=== PATIENT | male | born 1960 | race Two or more races ===

== ENCOUNTER 2024-01-18 16:33 | Emergency (ER) | payer OTHER ==
[~2024-01-18] VITALS: Ht 182.9 cm; Wt 122.7 kg
[2024-01-18 18:26] VITALS: BP 126/77; PULSE 77; RESP 20; TEMP 98.1; O2SAT 97
[2024-01-18] MEDS ORDERED: CEPH500C PO (20:11)
[2024-01-18] MEDS ORDERED: ACET500T58 PO (20:11)
== END 2024-01-18 20:20 | disposition home or self-care (01) ==
LOC: EDBD 16:33 → ER 16:33
DX: S61.411A Laceration without foreign body of right hand, initial encounter (principal); S09.90XA Unspecified injury of head, initial encounter; S61.209A Unspecified open wound of unspecified finger without damage to nail, initial encounter; E78.5 Hyperlipidemia, unspecified; I10 Essential (primary) hypertension; Z90.49 Acquired absence of other specified parts of digestive tract; V89.2XXA Person injured in unspecified motor-vehicle accident, traffic, initial encounter; Y93.89 Activity, other specified; Y92.89 Other specified places as the place of occurrence of the external cause; Y99.8 Other external cause status
CPT/HCPCS: 12002; 70450; 72125; 73110